=== PATIENT | female | born 1965 | race Caucasian/White ===

== ENCOUNTER 2023-06-23 06:59 | Day surgery (SDC) | payer BC ==
[~2023-06-23] VITALS: Ht 160 cm; Wt 93.4 kg
[~2023-06-23 06:59] MED LIST: AMLO1TAB25; DESL1TAB3; NS 1,000 ML IV ONE; OLME1TAB53 PO; PHEN37.58 PO; RABE1TAB4; ROSU20TA61
[2023-06-23] MEDS ORDERED: propofoL 200 MG/20 ML VIAL As Ordered ONE (07:01)
[2023-06-23] MEDS ORDERED: LIDOCAINE 2% 100MG/5ML SDV (FOR ANES.) As Ordered ONE (07:01)
[2023-06-23 08:19] VITALS: TEMP 97.2
[2023-06-23 08:29] VITALS: BP 132/62; O2SAT 98
== END 2023-06-23 08:29 | disposition home or self-care (01) ==
LOC: M OPP 06:59
PROVIDERS: ATTEND Internal Medicine Gastroenterology
DX: Z12.11 Encounter for screening for malignant neoplasm of colon (principal); D12.6 Benign neoplasm of colon, unspecified; K64.4 Residual hemorrhoidal skin tags; K64.8 Other hemorrhoids; K22.89 Other specified disease of esophagus; K44.9 Diaphragmatic hernia without obstruction or gangrene; K22.2 Esophageal obstruction; K29.70 Gastritis, unspecified, without bleeding; K31.7 Polyp of stomach and duodenum; G47.33 Obstructive sleep apnea (adult) (pediatric); Z79.811 Long term (current) use of aromatase inhibitors; Z79.899 Other long term (current) drug therapy